=== PATIENT | female | born 1965 | race African-American/Black ===

== ENCOUNTER 2016-08-09 01:18 | Emergency (ER) | payer OTHER ==
[~2016-08-09] VITALS: Ht 152.4 cm; Wt 52.2 kg
[~2016-08-09 01:18] MED LIST: ALBUTEROL SULF8.5 GM INH; CYCLOBENZAPRINE10 MG ORAL; IBUPROFEN600 MG ORAL; NITROFURANTOIN100 M2 ORAL
[2016-08-09 01:49] VITALS: BP 116/103
[2016-08-09 02:10] LABS: BASOPHILS % (AUTO) 1.2 % (0.0-2.0); EOSINOPHILS % (AUTO) 2.1 % (0.0-3.0); LYMPHOCYTES % (AUTO) 42.5 % (20.0-45.0); MEAN CORPUSCULAR HEMOGLOBIN 31.8 PG (27.0-31.0); MEAN CORPUSCULAR HGB CONC 32.5 G/DL (32.0-36.0); MEAN CORPUSCULAR VOLUME 98 FL (80-99); MEAN PLATELET VOLUME 5.9 FL (6.5-10.1); MONOCYTES % (AUTO) 6.7 % (1.0-10.0); NEUTROPHILS % (AUTO) 47.5 % (45.0-75.0); PLATELET COUNT 227 K/UL (150-450); RED BLOOD COUNT 4.53 M/UL (4.20-5.40); RED CELL DISTRIBUTION WIDTH 11.4 % (11.6-14.8); WHITE BLOOD COUNT 10.6 K/UL (4.8-10.8)
[2016-08-09 02:23] LABS: TROPONIN I < 0.30 ng/mL (<=0.30)
[2016-08-09 02:26] LABS: ALANINE AMINOTRANSFERASE 27 U/L (3-33); ANION GAP 14 (5-15); ASPARTATE AMINO TRANSFERASE 29 U/L (5-40); CALCIUM 9.1 mg/dL (8.6-10.2); CARBON DIOXIDE 25 mEQ/L (20-30); CHLORIDE 103 mEQ/L (98-107); CREATININE 0.7 mg/dL (0.5-0.9); GLOMERULAR FILTRATION RATE > 60 mL/min (>60); HEMOLYSIS 4; POTASSIUM 3.6 mEQ/L (3.4-4.9); SODIUM 142 mEQ/L (135-145)
[2016-08-09 02:36] LABS: CKMB < 1.5 ng/mL (< 3.8)
[2016-08-09 02:44] LABS: ALBUMIN/GLOBULIN RATIO 1.3 (1.0-2.7); TOTAL PROTEIN 6.5 g/dL (6.6-8.7)
[2016-08-09] MEDS ORDERED: IBUPROFEN600 MG ORAL (02:44)
[2016-08-09] MEDS ORDERED: Ketorolac 30mg Inj IV ONE (02:45)
[2016-08-09 02:55] VITALS: BP 118/54
[2016-08-09 02:56] VITALS: BP 118/54
--- NOTE | 2016-08-09 09:01 | Diagnostic Imaging Report ---
Indication: Chest pain Technique: Single AP view of the chest. Findings: Comparison: None. Digital clips and abdominal right upper quadrant. The bones and extra pulmonary soft tissues, cardiomediastinal silhouette, pulmonary vasculature and parenchyma, and pleural surfaces are otherwise unremarkable. IMPRESSION: Previous cholecystectomy Otherwise negative chest radiograph.
--- NOTE | 2016-08-11 12:07 | Emergency Room Report ---
History of Present Illness General Chief Complaint: Chest Pain Source: Patient Present Illness HPI [id number] presents with 2 days of central subs Allergies: Uncoded Allergies: PENICILLIN (Allergy, Unknown, 03/22/16) Patient History Past Medical History: none Past Surgical History: alyse Pertinent Family History: none Now: No Nursing Documentation[facility] Past Medical History: No History, Except For Hx Asthma: Yes Physical Exam Vital Signs Date Time Temp Pulse Resp B/P Pulse Ox O2 Delivery O2 Flow Rate FiO2 08/09/16 01:23 66 19 131/66 97 Room Air 08/09/16 01:49 98.0 Medical Decision Making Diagnostic Impression: Primary Impression: Chest pain Chest X-Ray Diagnostic Results EP Interpretation: Yes Findings: no consolidation, no effusion, no pneumothorax, no acute cardiopulmonary disease Number of Views: 1 Last Vital Signs Date Time Temp Pulse Resp B/P Pulse Ox O2 Delivery O2 Flow Rate FiO2 08/09/16 02:56 98.0 71 23 118/54 97 Room Air Status: improved Disposition: HOME, SELF-CARE Condition: Improved Scripts Ibuprofen* (MOTRIN*) 600 Mg Tablet 600 MG ORAL THREE TIMES A DAY for 7 Days, #30 TAB 0 Refills Prov: ABILIO RAM M.D. 08/09/16 Referrals: NON PHYSICIAN (PCP) Patient Instructions: Nonspecific Chest Pain, Musculoskeletal Pain Additional Instructions: - Take ibuprofen every 8 hours with food for pain - Follow up with your doctor in 2-3 days as needed ABILIO RAM M.D. Aug 11, 2016 12:07
== END 2016-08-09 02:57 | disposition home or self-care (01) ==
LOC: EMR 02:10
DX: R07.9 Chest pain, unspecified (principal); J45.909 Unspecified asthma, uncomplicated; Z88.0 Allergy status to penicillin; Z90.49 Acquired absence of other specified parts of digestive tract
CPT/HCPCS: 36415; 71010; 80053; 82550; 82553; 84484; 85025; 93005; 99283